=== PATIENT | male | born 1970 | race Caucasian/White ===

== ENCOUNTER → 2016-11-13 | Outpatient (CLI) | payer BC | LOC: LAB 15:34 | PROVIDERS: ATTEND Family Medicine | DX: E29.1 Testicular hypofunction (principal) | CPT/HCPCS: 36415; 84403 ==

== ENCOUNTER → 2016-11-20 | Outpatient (CLI) | payer BC | LOC: LAB 15:52 | PROVIDERS: ATTEND Family Medicine | DX: E29.1 Testicular hypofunction (principal) | CPT/HCPCS: 36415; 84403 ==

== ENCOUNTER → 2016-11-23 | Outpatient (CLI) | payer BC ==
--- NOTE | 2016-11-23 12:12 | DI ---
LUMBAR SPINE SERIES, 11/23/2016 10:17 AM: Clinical History: Lumbar back pain with sciatica. Previous Exam: 06/01/2010. Upright AP and lateral views are submitted. The patient is morbidly obese and has gained substantial weight since the previous exam. This detracts from the overall quality and significantly limits the d iagnostic quality of the exam with respect to fine detail structures. The vertebral bodies are of nor mal height and size. The disc spaces are normal. The pedicles and posterior elements are unremarkable . Mild arthritic changes are present in both sacroiliac joints. Readin. Normal lumbar spine series. 2. The patient has gained substantial weight since the prior exam and this detracts from the overall quality of the study.
== END ==
LOC: MOB RAD 10:23
PROVIDERS: ATTEND Family Medicine
DX: M54.42 Lumbago with sciatica, left side (principal); M54.41 Lumbago with sciatica, right side
CPT/HCPCS: 72100

== ENCOUNTER → 2016-12-12 | Outpatient (CLI) | payer BC | LOC: MOB LAB 10:58 | PROVIDERS: ATTEND Family Medicine | DX: E29.1 Testicular hypofunction (principal) | CPT/HCPCS: 36415; 84403 ==

== ENCOUNTER 2017-04-24 16:45 | Emergency (ER) | payer BC ==
[2017-04-24] MEDS ORDERED: NITROGLYCERIN 0.4 MG SL TAB (BOTTLE OF 3) SL ONE (17:00)
[2017-04-24] MEDS ORDERED: Sodium Chloride 0.9% 1,000 ML PRIMARY IV ONE ×2 (17:00→19:18)
[2017-04-24] MEDS ORDERED: Ondansetron ODT Tab 4 MG TAB PO ONE (17:00)
[2017-04-24] MEDS ORDERED: KETOROLAC 15 MG/1 ML VIAL IVP ONE (17:00)
--- NOTE | 2017-04-24 17:05 | PDOC ---
Chest Pain HPI - General Chief Complaint: Chest Pain Stated Complaint: CHEST PAIN Date Seen by Provider: 04/24/17 Time Seen by Provider: 17:01 Source: Patient, Spouse Exam Limitations: POSITIVE: No limitations Treatment Prior to Arrival: REPORTS: None Nurse's Notes Reviewed & Considered: Yes - History of Present Illness Initial Comments: This is a pleasant 46-year-old male comes in today with chief complaint of chest pain. Patient with chest pain that he describes as substernal pressure with radiation into his neck and arm. He has associated shortness of breath and nausea. He denies any fever chills or sweats, no vomiting no diarrhea, no hematuria or dysuria. His symptoms began on Sunday. 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 He states that there was an awful lot of fumes and that he hasn't felt well since. He said chest pressure that has gotten worse and shortness of breath. Body Location Affected: REPORTS: Chest Timing: REPORTS: Abrupt Duration: >24 hours Severity: Moderate Persistent/Worse since (date): 04/20/17 Context: REPORTS: Activity Quality: REPORTS: "Pain", Sharpness, Pressure Radiation: REPORTS: Jaw (L), Shoulder (L), Arm (L) Associated Symptoms: REPORTS: Nausea, Shortness of Breath Modifying Factors: improves with: None Reported Similar Symptoms Previously: No Recently seen/treated/hospitalized: No Any Prior Injuries Related to Current Complaint?: No - Patient Home Medications Home Medications: Home Medications Cpap 1 unit QHS #1 unit 04/27/14 Oxygen (O2) 1 unit QHS #2 unit 12/24/14 Neomy Sulf/Polymyx B Sulf/Hc [Otalwass-Dseagsnzu-Dz Ear Susp] 4 drop EACH EAR Q6H #1 bottle 01/19/17 Phentermine HCl 37.5 mg PO DAILY #30 tab 01/19/17 Testosterone Cypionate 300 mg IM every 2 weeks #2 vial 03/30/17 - Patient Allergies Allergies/Adverse Reactions: Allergies Allergy/AdvReac Type Severity Reaction Status Date / Time No Known Allergies Allergy Verified 04/24/17 17:06 Past Medical History Significant Family History: No pertinent family hx ROS - Limitations ROS Limitations: No Limitations Constitution: REPORTS: Denies Symptoms Cardiovascular: REPORTS: Chest Pain Respiratory: REPORTS: Shortness Of Breath Neurological: REPORTS: Denies Neuro Symptoms Gastrointestinal: REPORTS: Nausea Endocrine: REPORTS: Fatigue Musculoskeletal: REPORTS: Denies MS Symptoms Genitourinary: REPORTS: Denies Symptoms Eyes: REPORTS: Denies Symptoms ENT: REPORTS: Denies Symptoms Skin: REPORTS: Denies Skin Symptoms Lympathic: REPORTS: Denies Lympathic Symptoms Immunologic: POSITIVE: Denies Symptoms Psychiatric: POSITIVE: Denies Psych Symptoms Chest Pain PE - General Appearance General Appearance: REPORTS: Alert, Cooperative, No Evidence of Trauma, Moderate Distress - HEENT HEENT: POSITIVE: Head Inspection Nml, Eyes Inspection Nml, Ears Inspection Nml, Nose Inspection Nml, Oral/Dental Inspect. Nml, Pharynx Inspect. Nml, PERRL, EOMI - Neck Neck: REPORTS: Normal Inspection - Respiratory Respiratory: REPORTS: No Respiratory Distress, Breath Sounds Normal, Chest Non- Tender - Cardiovascular Cardiovascular: REPORTS: Regular Rate and Rhythm, Heart Sounds Normal, Strong Pulses, No Murmur, No Gallop, No Friction Rub, No JVD Peripheral Pulses: Radial (R): 4+ - Abdomen Abdomen: Soft: (All Quadrants), Normal Bowel Sounds: (All Quadrants), Denies Tenderness: (All Quadrants), No Splenomegaly: (All Quadrants), No Hepatomegaly: (All Quadrants), No Guarding: (All Quadrants), No Rebound: (All Quadrants), No Palpable Pulse: (All Quadrants), No Palpabale Mass: (All Quadrants), No Rigidity : (All Quadrants), Distention: (All Quadrants) - Skin Skin: REPORTS: Intact, Normal For Race, Warm, Dry, No Rash - Extremities Extremity: Non-Tender: (All Extremities), Normal ROM: (All Extremities), Normal Inspection: (All Extremities), Pelvis Stable: (All Extremities) - Neurological / Psychological Neurological: POSITIVE: Oriented X3, Motor Normal, Sensation Normal Chest Pain Progress - Results Reviewed by me Xrays/CTs/US Reviewed by me: Yes Discussed with Radiologist: Yes Lab Results Reviewed: Yes Lab Results:: Laboratory Results 04/24/17 Range/Units 16:25 WBC 9.67 (4.8-10.8) 10^3/uL RBC 5.64 (4.70-6.10) 10^6/uL Hgb 16.0 (14.0-18.0) g/dL Hct 46.7 (42.0-52.0) % MCV 82.8 (80-90) FL MCH 28.4 (27-31) PG MCHC 34.3 (33-37) g/dL RDW Std Deviation 41.0 (39-50) fL RDW Coeff of Lien 13.6 (11.5-14.5) % Plt Count 191 (140-350) 10*3/uL MPV 9.7 (7.4-12.2) FL Immature Gran % (Auto) 0.3 (0-5) % Neut % (Auto) 70.7 (50-80) % Lymph % (Auto) 15.0 (10-50) % [place] % (Auto) 10.4 (5-15) % Eos % (Auto) 2.6 (0-8) % Baso % (Auto) 1.0 (0-1) % Immature Gran # (Auto) 0.03 10*3/UL Neut # (Auto) 6.83 10*3/UL Lymph # (Auto) 1.45 10*3/uL [place] # (Auto) 1.01 H (0.3-0.8) 10*3/UL Eos # (Auto) 0.25 10*3/UL Baso # (Auto) 0.10 10*3/UL WBC Morphology Comment Normal morphology (NORM) Plt Morphology Comment Normal morphology (NORM) RBC Morph Comment Normal morphology (NORM) D-Dimer 6.80 H (0.00-0.59) mg/L Sodium 137 (135-145) meq/L Potassium 4.1 (3.8-5.2) meq/L Chloride 102 (98-112) meq/L Carbon Dioxide 25 (23-33) meq/L Anion Gap 10 (5-20) BUN 21 (7-22) mg/dL Creatinine 1.8 H (0.70-1.50) mg/dL Estimated GFR 41 (>60 ml/min/1.73m(2)) BUN/Creatinine Ratio 11.66 (6-20) Glucose 89 (78-110) mg/dL Calculated Osmolality 285.0 (267-292) mOsm/kg Calcium 8.0 L (8.7-10.7) mg/dL Magnesium 1.8 (1.6-2.4) mg/dL Total Bilirubin 0.9 (0.3-1.2) mg/dL AST 129 H (21-57) IU/L ALT 101 H (21-72) IU/L Alkaline Phosphatase 132 H (38-126) IU/L CK-MB (CK-2) 1.30 (0.00-5.00) NG/ML Troponin I < 0.012 (< 0.040) ng/mL C-Reactive Protein 3.6 H (0.0-0.9) mg/dL NT-Pro-B Natriuret Pep 128 H (0-125) PG/ML Total Protein 7.1 (6.1-8.0) g/dL Albumin 4.2 (3.5-4.8) g/dL Globulin 2.9 (2.50-4.10) g/dL Albumin/Globulin Ratio 1.40 (1.3-2.0) mg/g TSH 5.77 H (0.2700-4.2000) uIU/mL EKG Interpretation:: POSITIVE: Normal Sinus Rhythm, Normal Rate, Normal Intervals, Normal [place], Normal QRS, Normal ST/T - Patient's Progress Pain Medication Addressed: POSITIVE: Yes Status: POSITIVE: Improved MDM / ED Course: Patient was evaluated, IV started, blood drawn and sent to the lab for studies, radiographic and EKG studies were obtained. Findings: EKG is interpreted by me shows a normal sinus rhythm. CT scan of his chest shows no PE present. D-dimer is elevated greater than 6. Troponin and CK -MB are negative. CBC is within normal limits. Comprehensive metabolic panel is unremarkable. Assessment: Chest pain with positive risk factors, normal EKG and cardiac enzymes. Plan: Initial plan was to transfer this patient to [facility] where adequate equipment to perform stress test and serialized cardiac enzymes with EKG was available. Here at [facility] table weight limit is exceeded by the patient's weight. Patient declines transfer and declines admission. I discussed multiple times the need for a stress test and rule out myocardial infarction however he states he understands but wishes to go home. I have encouraged him to return calling 911 if he has return of chest pressure, shortness of breath, diaphoresis, or other concerns. Quality Measure Initiative: CP/AMI: POSITIVE: EKG, ASA Quality Measure Initiative: CAP: POSITIVE: CXR or CT - Consult Consult (If Yes, Name of Consulting MD & Time Called): Yes (Dr. Oliveros 1900 hrs.) Consulting MD will see pt:: POSITIVE: Recommended Transfer Counseled: POSITIVE: Patient, Family, RE: Lab Results, RE: Radiology Results, RE : DX, RE: Need for F/U Patient Care Time - Estimated PCT Patient Care Time (In Minutes): 60 Vital Signs - Recent Vital Signs Vital Signs: Vital Signs (Last 8 hours) Temp Pulse Resp BP Pulse Ox 04/24/17 16:51 97.4 F 83 28 H 193/107 94 - VS Reviewed Vital Signs Reviewed: Yes Discharge Clinical Impression: Chest pain Discharge Disposition: Discharged to Home Condition: Stable Patient Instructions Given at Discharge: Chest Pain (ED)
[2017-04-24] MEDS ORDERED: ASPIRIN 81 MG (BABY) CHEWABLE TABLET PO ONE (17:06)
[2017-04-24] MEDS ORDERED: ONDANSETRON 4 MG/2 ML VIAL IVP ONE (17:07)
[2017-04-24 17:13] LABS: EOSINOPHILS # (AUTO) 0.25 10*3/UL; EOSINOPHILS % (AUTO) 2.6 % (0-8); HEMATOCRIT 46.7 % (42.0-52.0); LYMPHOCYTES # (AUTO) 1.45 10*3/uL; MEAN CORPUSCULAR HEMOGLOBIN 28.4 PG (27-31); MEAN CORPUSCULAR HGB CONC 34.3 g/dL (33-37); MEAN CORPUSCULAR VOLUME 82.8 FL (80-90); MEAN PLATELET VOLUME 9.7 FL (7.4-12.2); MONOCYTES # (AUTO) 1.01 10*3/UL (0.3-0.8); MONOCYTES % (AUTO) 10.4 % (5-15); NEUTROPHILS # (AUTO) 6.83 10*3/UL; NEUTROPHILS % (AUTO) 70.7 % (50-80); RED BLOOD COUNT 5.64 10^6/uL (4.70-6.10)
[2017-04-24 17:14] LABS: PLATELET MORPHOLOGY COMMENT NORMAL MORPHOLOGY (NORM); RBC MORPHOLOGY COMMENT NORMAL MORPHOLOGY (NORM); WBC MORPHOLOGY COMMENT NORMAL MORPHOLOGY (NORM)
[2017-04-24 17:27] LABS: BUN/CREATININE RATIO 11.66 (6-20); C-REACTIVE PROTEIN 3.6 mg/dL (0.0-0.9); MAGNESIUM 1.8 mg/dL (1.6-2.4); SERUM ALBUMIN 4.2 g/dL (3.5-4.8)
[2017-04-24 17:37] LABS: TROPONIN I < 0.012 ng/mL (< 0.040)
[2017-04-24 17:43] VITALS: RESP 28; TEMP 97.4
--- NOTE | 2017-04-24 17:55 | DI ---
AP CHEST X-RAY, 04/24/2017 5:00 PM : Clinical History: Chest pain Previous Exam: April 10, 2011 There is no acute soft tissue or bony abnormality. Heart size is normal. Lungs are clear. Mediastinal structures are normal. There are no pulmonary nodules. Reading: No acute disease.
--- NOTE | 2017-04-24 18:02 | EKG ---
[address] [address] Measurements Intervals [place] Rate: 83 P: 52 CA: 162 QRS: 56 QRSD: 85 T: 62 QT: 352 QTc: 392 Interpretive Statements SINUS RHYTHM No previous ECG available for comparison Electronically Signed On 04-25-17 08:33:09 MDT by Joss Aceves MD [email or web address]
--- NOTE | 2017-04-24 18:41 | DI ---
CT CTA CHEST NONCORONARY W/WO,04/24/2017 5:36 PM: Clinical History: Shortness of breath Previous Exam: April 11, 2011 Findings: Multiple helically acquired CT images are obtained through the chest following a CT chest angiogram p rotocol. Images are limited due to poor bolus timing however, there is no filling defect or truncatio n identified within the pulmonary arteries. There is diffuse fatty infiltration of liver. There is no infiltrate nor effusion. There is no lymphadenopathy. Skeletal structures are unremarkable. Impression: No evidence of pulmonary embolism.
== END 2017-04-24 19:45 | disposition home or self-care (01) ==
LOC: ER 16:45
DX: R07.9 Chest pain, unspecified (principal); M54.2 Cervicalgia; R06.02 Shortness of breath; R11.0 Nausea
CPT/HCPCS: 71010; 71275; 80053; 82553; 83735; 83880; 84443; 84484; 85025; 85379; 86140; 93005; 93010; 96374; 99284 ×2; J1885; J2405; J7030